=== PATIENT | female | born 1995 | race American Indian/Alaskan Native ===

== ENCOUNTER 2018-10-12 21:02 | Emergency (ER) | payer OTHER ==
[2018-10-12 21:11] VITALS: BP 135/79
[2018-10-12] MEDS ORDERED: TYLENOL PO ONE (22:21)
[2018-10-12] MEDS ORDERED: TYLENOL ONE (22:21)
--- NOTE | 2018-10-12 23:18 | Cat Scan Report ---
CT facial bones wo con INDICATION / CLINICAL INFORMATION: left periorbital pain. TECHNIQUE: Routine CT of the facial bones without IV contrast. All CT scans at this location are performed using CT dose reduction for ALARA by means of automated exposure control. COMPARISON: None available. FINDINGS: The nasal bone is intact. The left orbit is intact. No significant periorbital edema is appreciated. The globe is intact. No air-fluid levels identified within the maxillary, ethmoid or frontal sinuses. IMPRESSION: No acute abnormality identified. Signer Name: Francis Grayson MD Signed: 10/12/2018 11:14 PM Workstation Name: [id number]
[2018-10-12] MEDS ORDERED: PERCOCET 5/325 PO ONE (23:33)
[2018-10-12] MEDS ORDERED: PERCOCET 5/325 ONE (23:35)
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
== END 2018-10-12 23:50 | disposition home or self-care (01) ==
LOC: ED 21:02
DX: S00.12XA Contusion of left eyelid and periocular area, initial encounter (principal); F12.10 Cannabis abuse, uncomplicated; Z87.891 Personal history of nicotine dependence; Y04.8XXA Assault by other bodily force, initial encounter; Y93.89 Activity, other specified; Y92.89 Other specified places as the place of occurrence of the external cause; Y99.8 Other external cause status
CPT/HCPCS: 70486

== ENCOUNTER 2018-11-23 11:15 | Emergency (ER) | payer OTHER ==
--- NOTE | 2018-11-23 11:51 | Event Note ---
ED Screening Note Date of service: 11/23/18 Time: 11:35 ED Screening Note: 23 y/o female comes in for cyst to her upper buttock. No fever but has pain. LMP 11/11/18. This initial assessment/diagnostic orders/clinical plan/treatment(s) is/are subject to change based on patients health status, clinical progression and re- assessment by fellow clinical providers in the ED. Further treatment and workup at subsequent clinical providers discretion. Patient/guardian urged not to elope from the ED as their condition may be serious if not clinically assessed and managed. Initial orders include:
[2018-11-23] MEDS ORDERED: KETOROLAC 30 MG/1 ML INJ IM ONE (13:56)
--- NOTE | 2018-11-23 13:56 | Emergency Department Report ---
- General Chief complaint: Urogenital-Female Stated complaint: CYST ON BACK Time Seen by Provider: 11/23/18 11:35 Source: patient Mode of arrival: Ambulatory Limitations: No Limitations - History of Present Illness Initial comments: Patient reports cyst to her buttocks that started two days ago MD complaint: rash, abscess/boil Onset/Timin -: days(s) Tetanus Up to Date: unsure Location: buttocks Severity: severe Severity scale (0 -10): 10 Quality: aching Consistency: constant Improves with: none Worsens with: movement Context: other (unknown) Associated symptoms: athralgias Treatments Prior to Arrival: none - Related Data Previous Rx's Medication Instructions Recorded Last Taken Type Ketorolac [Toradol] 10 mg PO Q6H PRN #20 tablet 10/12/18 Unknown Rx Clindamycin [Clindamycin CAP] 300 mg PO Q8H #30 cap 11/23/18 Unknown Rx Ibuprofen [Motrin 600 MG tab] 600 mg PO Q8H PRN #30 tablet 11/23/18 Unknown Rx Allergies Allergy/AdvReac Type Severity Reaction Status Date / Time No Known Allergies Allergy Verified 10/12/18 22:26 Abscess Boil HPI - HPI Chief Complaint: Urogenital-Female Stated Complaint: CYST ON BACK Time Seen by Provider: 11/23/18 11:35 Home Medications: Previous Rx's Medication Instructions Recorded Last Taken Type Ketorolac [Toradol] 10 mg PO Q6H PRN #20 tablet 10/12/18 Unknown Rx Clindamycin [Clindamycin CAP] 300 mg PO Q8H #30 cap 11/23/18 Unknown Rx Ibuprofen [Motrin 600 MG tab] 600 mg PO Q8H PRN #30 tablet 11/23/18 Unknown Rx Allergies/Adverse Reactions: Allergies Allergy/AdvReac Type Severity Reaction Status Date / Time No Known Allergies Allergy Verified 10/12/18 22:26 ED Review of Systems ROS: Stated complaint: CYST ON BACK Other details as noted in HPI Constitutional: denies: chills, fever Eyes: denies: eye pain, eye discharge, vision change ENT: denies: ear pain, throat pain Respiratory: denies: cough, orthopnea, shortness of breath, SOB with exertion, SOB at rest, stridor, wheezing Cardiovascular: denies: chest pain, palpitations Endocrine: no symptoms reported Gastrointestinal: denies: abdominal pain, nausea, diarrhea Genitourinary: denies: urgency, dysuria, discharge Musculoskeletal: denies: back pain, joint swelling, arthralgia Skin: rash (buttocks). denies: lesions Neurological: denies: headache, weakness, paresthesias Psychiatric: denies: anxiety, depression Hematological/Lymphatic: denies: easy bleeding, easy bruising ED Past Medical Hx - Past Medical History Previous Medical History?: No - Surgical History Past Surgical History?: No - Social History Smoking Status: Never Smoker Substance Use Type: None, Marijuana - Medications Home Medications: Home Medications Medication Instructions Recorded Confirmed Last Taken Type Ketorolac [Toradol] 10 mg PO Q6H PRN #20 tablet 10/12/18 Unknown Rx Clindamycin [Clindamycin CAP] 300 mg PO Q8H #30 cap 11/23/18 Unknown Rx Ibuprofen [Motrin 600 MG tab] 600 mg PO Q8H PRN #30 tablet 11/23/18 Unknown Rx ED Physical Exam - General Limitations: No Limitations General appearance: alert, in no apparent distress - Respiratory Respiratory exam: Present: normal lung sounds bilaterally. Absent: respiratory distress, wheezes, rales, rhonchi, stridor, chest wall tenderness, accessory muscle use, decreased breath sounds, prolonged expiratory - Cardiovascular Cardiovascular Exam: Present: tachycardia, normal heart sounds. Absent: systolic murmur, diastolic murmur, rubs, gallop - Extremities Exam Extremities exam: Present: normal inspection, full ROM, normal capillary refill. Absent: tenderness, pedal edema, joint swelling, calf tenderness - Back Exam Back exam: Present: full ROM, other (3 cm rash between right and left buttocks erythema and induration). Absent: tenderness, CVA tenderness (R), CVA tenderness (L), muscle spasm, paraspinal tenderness, vertebral tenderness - Neurological Exam Neurological exam: Present: alert, oriented X3, CN II-XII intact, normal gait, reflexes normal. Absent: motor sensory deficit - Psychiatric Psychiatric exam: Present: normal affect, normal mood - Skin Skin exam: Present: erythema ED Course Vital Signs 11/23/18 11:22 Temperature 98.1 F Pulse Rate 112 H Respiratory 18 Rate Blood Pressure 117/74 O2 Sat by Pulse 99 Oximetry ED Medical Decision Making - Lab Data Vital Signs 11/23/18 11:22 Temperature 98.1 F Pulse Rate 112 H Respiratory 18 Rate Blood Pressure 117/74 O2 Sat by Pulse 99 Oximetry - Medical Decision Making During the course of ED, all other systems are unremarkable except for documentation in HPI. Patient was given a Toradol injection prior to discharge. She was sent home with prescription for Clindamycin and Ibuprofen, instructed to do warm bath soaks three times a day, she verbalized understanding - Differential Diagnosis Cellulitis, Abscess Critical care attestation.: If time is entered above; I have spent that time in minutes in the direct care of this critically ill patient, excluding procedure time. ED Disposition Clinical Impression: Cellulitis Qualifiers: Site of cellulitis: buttock Qualified Code(s): L03.317 - Cellulitis of buttock Disposition: DC- TO HOME OR SELFCARE Is pt being admited?: No Does the pt Need Aspirin: No Condition: Stable Instructions: Cellulitis (ED) Additional Instructions: Take medications as directed. Warm bath soaks three times day. Follow up with PCP as needed Prescriptions: Clindamycin [Clindamycin CAP] 300 mg PO Q8H #30 cap Ibuprofen [Motrin 600 MG tab] 600 mg PO Q8H PRN #30 tablet PRN Reason: Pain Referrals: PRIMARY CARE, [Primary Care Provider] - 3-5 Days [facility] [Outside] - 3-5 Days [facility] [Outside] - 3-5 Days Forms: Work/School Release Form(ED) Time of Disposition: 14:02
[2018-11-23 14:09] VITALS: BP 128/75
== END 2018-11-23 14:22 | disposition home or self-care (01) ==
LOC: ED 11:15
DX: L03.317 Cellulitis of buttock (principal); F12.10 Cannabis abuse, uncomplicated
CPT/HCPCS: 96372; 99282; J1885